=== PATIENT | female | born 1985 | race African-American/Black ===

== ENCOUNTER → 2019-02-16 | Outpatient (CLI) | payer SELFPAY | LOC: OD 11:37 | PROVIDERS: ATTEND Nurse Practitioner Family | DX: R82.71 Bacteriuria (principal) | CPT/HCPCS: 87086 ==

== ENCOUNTER 2020-03-31 09:37 | Emergency (ER) | payer OTHER ==
[2020-03-31 09:57] VITALS: BP 148/89
[2020-03-31] MEDS ORDERED: HYDROCODONE/ACETAMINOPHEN 5-325 MG (6 TAB/ER DISP) PO PRN (10:30)
[2020-03-31] MEDS ORDERED: HYDROCODONE/ACETAMINOPHEN 5-325 MG TABLET PO ONE (10:36)
--- NOTE | 2020-03-31 10:36 | ER Document Report ---
HPI - HPI Time Seen by Provider: 03/31/20 10:25 Pain Level: 4 Context: Patient is a 35-year-old female with no past medical history presents emergency department with a chief complaint of right ear pain. Patient states that she thought she maybe had a pimple on her left ear and states that the pain is now excruciating. - CONSTITUTIONAL Constitutional: REPORTS: Fever - EENT EENT: REPORTS: Ear Pain - Left - REPRODUCTIVE Reproductive: DENIES: : - DERM Skin Color: Normal Skin Problems: None Past Medical History - General Information source: Patient - Social History Smoking Status: Never Smoker Chew tobacco use (# tins/day): No Frequency of alcohol use: Occasional Drug Abuse: None Family History: Reviewed & Not Pertinent Patient has homicidal ideation: No Vertical Provider Document - CONSTITUTIONAL Agree With Documented VS: Yes Exam Limitations: No Limitations General Appearance: No Apparent Distress - INFECTION CONTROL TRAVEL OUTSIDE OF THE [place] IN LAST 30 DAYS: No - HEENT HEENT: Atraumatic, Normocephalic, PERRLA, Tympanic Membrane Red - Right, Tympanic Membrane Bulging - Right. negative: Conjuctival Injection, Pharyngeal Exudate, Pharyngeal Tenderness, Pharyngeal Erythema Notes: Edema noted to the left external auditory canal - NECK Neck: Normal Inspection - RESPIRATORY Respiratory: Breath Sounds Normal, No Respiratory Distress - CARDIOVASCULAR Cardiovascular: Regular Rate, Regular Rhythm Pulses: Normal: Radial - MUSCULOSKELETAL/EXTREMETIES Musculoskeletal/Extremeties: FROM - NEURO Level of Consciousness: Awake, Alert, Appropriate Motor/Sensory: No Motor Deficit, No Sensory Deficit - DERM Integumentary: Warm, Dry, No Rash Course - Re-evaluation Re-evalutation: 03/31/20 10:32 Patient's physical exam and history is consistent with otitis externa. Patient will be placed on Ciprodex drops. I do not suspect patient has mastoiditis, as there is no pain at the mastoid process. We will start the patient on Augmentin due to the severity of her otitis externa and otitis media of right ear. Patient will follow-up with her primary care provider. Follow-up precautions were given. Verbal discharge instructions were given to the patient. They verbalized understanding. They are stable for discharge. - Vital Signs Vital signs: Temp Pulse Resp BP Pulse Ox 98.8 F 90 18 148/89 H 100 03/31/20 09:56 03/31/20 09:56 03/31/20 09:56 03/31/20 09:56 03/31/20 09:56 Discharge - Discharge Clinical Impression: Right otitis media Qualifiers: Otitis media type: serous Chronicity: acute Recurrence: non-recurrent Qualified Code(s): H65.01 - Acute serous otitis media, right ear Left otitis externa Qualifiers: Otitis externa type: unspecified type Chronicity: acute Qualified Code(s): H60.502 - Unspecified acute noninfective otitis externa, left ear Condition: Stable Disposition: HOME, SELF-CARE Instructions: Use of Ear Drops ([facility]), Using Ear Drops with a Wick ([facility]), Oral Narcotic Medication ([facility]), Otitis Externa ([facility]) Additional Instructions: You were seen today for ear pain and have an acute ear infection. Please take the antibiotic that has been prescribed until it is completed even if you are feeling better before you have finished all the antibiotics. For your pain: Take ibuprofen 600 mg every 6 hours together as needed for pain. Take [place] only if the ibuprofen does not work for you. You can take 1 tablet every 4-6 hours. Return if you have worsening of your pain, loss of hearing in the affected ear, worsening facial pain, headaches, pass out, or any other symptoms that are worrisome to you. You also have an outer ear infection to your left ear. Use the ear jenna to help you instill the eardrops. Prescriptions: Amoxicillin/Potassium Clav [Augmentin 875-125 Tablet] 1 tab PO BID #20 tab Ciprofloxacin HCl/Dexameth [Ciprodex Otic Suspension 7.5 ml Bottle] 4 drop OT BID 7 Days #1 bottle Forms: Return to Work Referrals: KIMI DEL ANGEL FNP-BC [NURSE PRACTITIONER] - Follow up in 3-5 days
== END 2020-03-31 10:30 | disposition home or self-care (01) ==
LOC: ER 09:37
DX: H65.01 Acute serous otitis media, right ear (principal); H60.502 Unspecified acute noninfective otitis externa, left ear; H92.01 Otalgia, right ear; R50.9 Fever, unspecified
CPT/HCPCS: 99283

== ENCOUNTER 2020-04-01 11:51 | Emergency (ER) | payer OTHER ==
[2020-04-01] MEDS ORDERED: DEXAMETHASONE SOD PHOS INJ 10 MG/1 ML VIAL IM ONE (12:04)
[2020-04-01] MEDS ORDERED: KETOROLAC TROMETHAMINE 60 MG/2 ML SDV IM ONE (12:04)
[2020-04-01] MEDS ORDERED: METHYLPREDNISOLONE ACETATE INJ 40 MG/1 ML ML IM ONE (12:04)
--- NOTE | 2020-04-01 12:09 | ER Document Report ---
HPI - HPI Patient complains to provider of: ear pain Time Seen by Provider: 04/01/20 12:01 Onset: Just prior to arrival Quality of pain: No pain Associated Symptoms: None Exacerbated by: Denies - REPRODUCTIVE Reproductive: DENIES: : Past Medical History - General Information source: Patient - Social History Smoking Status: Never Smoker Cigarette use (# per day): No Chew tobacco use (# tins/day): No Smoking Education Provided: No Frequency of alcohol use: None Drug Abuse: None Family History: Reviewed & Not Pertinent Vertical Provider Document - CONSTITUTIONAL Agree With Documented VS: Yes - INFECTION CONTROL TRAVEL OUTSIDE OF THE [place] IN LAST 30 DAYS: No - HEENT HEENT: Atraumatic, Normocephalic, PERRLA, Tympanic Membrane Bulging - NECK Neck: Normal Inspection - RESPIRATORY Respiratory: Breath Sounds Normal - CARDIOVASCULAR Cardiovascular: Regular Rate - GI/ABDOMEN Gastrointestinal: Abdomen Soft, Abdomen Non-Tender - REPRODUCTIVE Female Genitalia: Normal Inspection - BACK Back: Normal Inspection - MUSCULOSKELETAL/EXTREMETIES Musculoskeletal/Extremeties: MAEW, FROM Course - Vital Signs Vital signs: Temp Pulse Resp BP Pulse Ox 98.4 F 127 H 20 151/103 H 99 04/01/20 11:54 04/01/20 11:54 04/01/20 11:54 04/01/20 11:54 04/01/20 11:54 Discharge - Discharge Clinical Impression: Otitis media Qualifiers: Otitis media type: other nonsuppurative Chronicity: unspecified Laterality: bilateral Qualified Code(s): H65.93 - Unspecified nonsuppurative otitis media, bilateral Condition: Good Disposition: HOME, SELF-CARE
[2020-04-01] MEDS ORDERED: DEXAMETHASONE SOD PHOSPHATE INJ 4 MG/1 ML VIAL IM ONE (12:30)
[2020-04-01 12:46] VITALS: BP 136/78
== END 2020-04-01 12:45 | disposition home or self-care (01) ==
LOC: ER 11:51
DX: H65.93 Unspecified nonsuppurative otitis media, bilateral (principal)
CPT/HCPCS: 99282; 96372; 96374; J1885; J1030; J1100

== ENCOUNTER 2020-04-04 20:03 | Emergency (ER) | payer OTHER ==
[2020-04-04 20:28] VITALS: BP 142/85
== END 2020-04-04 23:20 | disposition left against medical advice (07) ==
LOC: ER 20:03
DX: Z53.21 Procedure and treatment not carried out due to patient leaving prior to being seen by health care provider (principal); R11.0 Nausea

== ENCOUNTER 2020-07-10 07:27 | Day surgery (SDC) | payer OTHER ==
[~2020-07-10 07:27] MED LIST: FENTANYL CITRATE INJ/PF 100 MCG/2 ML AMPUL ONE; MIDAZOLAM 2 MG/2 ML INJ ONE; ONDANSETRON HCL INJ/PF 4 MG/2 ML SDV ONE; PROPOFOL INJ 200 MG/20 ML VIAL IV ONE
[2020-07-10] MEDS ORDERED: ONDANSETRON HCL INJ/PF 4 MG/2 ML SDV IV PRN (08:54)
[2020-07-10] MEDS ORDERED: PROMETHAZINE HCL INJ 25 MG/1 ML VIAL IV PRN ×2 (08:54)
[2020-07-10] MEDS ORDERED: MORPHINE SULFATE 10 MG/ML INJ IV PRN (08:54)
[2020-07-10] MEDS ORDERED: FENTANYL CITRATE INJ/PF 100 MCG/2 ML AMPUL IV PRN ×3 (08:54)
[2020-07-10] MEDS ORDERED: DIPHENHYDRAMINE HCL 50 MG/ML VIAL IV PRN (08:54)
[2020-07-10] MEDS ORDERED: MEPERIDINE HCL/PF INJ 25 MG/1 ML DISP.SYRIN IV PRN (08:54)
[2020-07-10] MEDS ORDERED: CEFAZOLIN 1 GM/D5W RTU 1 GM/50 ML RTUPB IV ONE (09:02)
--- NOTE | 2020-07-10 09:29 | Operative Report ---
Operative Report DATE OF SURGERY: 07/10/20 PREOPERATIVE DIAGNOSIS: Lost IUD POSTOPERATIVE DIAGNOSIS: Same OPERATION: Hysteroscopy with removal of IUD SURGEON: FABIOLA PATRICK ANESTHESIA: LMAC TISSUE REMOVED OR ALTERED: IUD intact ESTIMATED BLOOD LOSS: Negligible PROCEDURE: Placed in the dorsolithotomy system prepped [employer] fashion. Speculum placed cervix visualized and grasped to a depth of 10 cm. The cervix was dilated to admit a hysteroscope, hysteroscope was placed with visualization of the IUD. The IUD strings were grasped and IUD was removed intact. Throat overt abnormalities were noted. The single-tooth tenaculum removed the speculum was removed and the procedure terminated she was taken recovery in good condition.
[2020-07-10 09:34] LABS: APPEARANCE,URINE CLOUDY; BILIRUBIN,URINE NEGATIVE (NEGATIVE); COLOR,URINE YELLOW; GLUCOSE, URINE NEGATIVE (NEGATIVE); KETONES,URINE NEGATIVE (NEGATIVE); LEUKOCYTE ESTERASE,URINE NEGATIVE (NEGATIVE); NITRITE,URINE NEGATIVE (NEGATIVE); PROTEIN,URINE NEGATIVE (NEGATIVE); URINE SPECIFIC GRAVITY 1.018; UROBILINOGEN,URINE NEGATIVE mg/dL (<2.0)
[2020-07-10] MEDS ORDERED: OXYCODONE-ACETAMINOPHEN 5-325 MG TABLET ONE (10:21)
[2020-07-10] MEDS ORDERED: DEXAMETHASONE SOD PHOSPHATE INJ 4 MG/1 ML VIAL ONE ×2 (10:45→10:46)
[2020-07-10] MEDS ORDERED: SCOPOLAMINE HYDROBROMIDE 1.5 MG PATCH.TD72 ONE (10:45)
[2020-07-10] MEDS ORDERED: ONDANSETRON HCL INJ/PF 4 MG/2 ML SDV ONE (10:45)
[2020-07-10 15:34] VITALS: BP 126/69
[2020-07-10] MEDS ORDERED: SCOPOLAMINE HYDROBROMIDE 1.5 MG PATCH.TD72 TD ONE (16:00)
[2020-07-10] MEDS ORDERED: ONDANSETRON HCL INJ/PF 4 MG/2 ML SDV IV ONE (16:00)
[2020-07-10] MEDS ORDERED: DEXAMETHASONE SOD PHOSPHATE INJ 4 MG/1 ML VIAL IV ONE (16:00)
== END 2020-07-10 12:00 | disposition home or self-care (01) ==
LOC: OROUT 07:27
PROVIDERS: ATTEND Obstetrics & Gynecology Gynecology
DX: T83.32XA Displacement of intrauterine contraceptive device, initial encounter (principal); Y84.8 Other medical procedures as the cause of abnormal reaction of the patient, or of later complication, without mention of misadventure at the time of the procedure; Z30.432 Encounter for removal of intrauterine contraceptive device; D57.3 Sickle-cell trait; E66.9 Obesity, unspecified; Z03.818 Encounter for observation for suspected exposure to other biological agents ruled out
CPT/HCPCS: 87635; 81025; 81001; 58579; J2250; J0690; J1100; J3010; J2405; J2704; C9803; 952